=== PATIENT | female | born 1975 | race Caucasian/White ===

== ENCOUNTER 2022-08-15 19:21 | Emergency (ER) | payer SELFPAY ==
[2022-08-15 19:30] VITALS: BP 140/85; PULSE 98; RESP 20; TEMP 36.7; O2SAT 96; BMI 31.2
--- NOTE | 2022-08-15 20:04 | ED_ITS ---
HPI - Wound/Laceration General Chief Complaint: Laceration/Wound Stated Complaint: R thumb sliced open Time Seen by Provider: 08/15/22 19:34 History of Present Illness HPI narrative: This 47-year-old female comes in with a laceration to her right thumb. She was attempting to open a can and cut into the distal portion of her pad of her right thumb. There is a irregular laceration about 3 cm in length. She has applied a couple rubber bands around the proximal portion of her thumb for a partial tourniquet as the bleeding is continuing. She states that she is uncertain about her tetanus status. Related Data Home Medications Medication Instructions Recorded Confirmed No Known Home Medications 08/15/22 08/15/22 Allergies Allergy/AdvReac Type Severity Reaction Status Date / Time No Known Drug Allergies Allergy Verified 08/15/22 19:32 Review of Systems Status of ROS: Reports: 10 or more systems reviewed and unremarkable except as noted in History and below Narrative: Constitutional: No fevers, no weight gain or loss. Eyes: No discharge. No vision changes. HENT: No congestion, no sore throat, no ear pain. Cardiovascular: No chest pain, no palpitations. Respiratory: No shortness of breath, no wheezes, no cough. Gastrointestinal: No abdominal pain, no vomiting, no diarrhea. Genitourinary: No dysuria, no hematuria. Musculoskeletal: Normal range of motion. Skin: No rashes, no pruritis. Neurological: No dizziness, weakness, sensory change, speech change. Endo/Heme/Allergies: No bruising or bleeding. No polydipsia. Pysch: no suicidality, no anxiety, no insomnia. All other systems reviewed and are negative. Exam Narrative: Exam Narrative: Constitutional: Well-developed, well-nourished, no acute distress. HEENT: Normocephalic, atraumatic. Neck: Normal range of motion. Nontender. Supple. Heart: Intact distal pulses. Lungs: No chest discomfort. No wheezes, rhonchi, or rales. Abdomen: Nontender. Back: Normal range of motion. Extremities: Normal range of motion. Distal portion of the palmar aspect of the right thumb has a irregular laceration about 3 cm in length. Skin: Intact. No rash. Warm. No erythema or pallor. Neurologic: No altered sensation. No weakness. Alert and oriented. Psychiatric: No suicidality. No anxiety or depression. No insomnia. Nursing notes and vitals signs are reviewed. Const: Vital Signs, click to edit/add: Vital Signs - 24 hr 08/15/22 19:30 Temperature 98.1 F Pulse Rate [Pulse Oximeter] 98 Respiratory Rate 20 Blood Pressure [Le ft Upper Arm] 140/85 H Pulse Oximetry 96 Oxygen Delivery Me thod Room Air Course Vital Signs Vital signs: Initial Vital Signs Temperature 98.1 F 08/15/22 19:30 Temperature Source Temporal Artery Scan 08/15/22 19:30 Pulse Rate 98 08/15/22 19:30 Respiratory Rate 20 08/15/22 19:30 Blood Pressure 140/85 H 08/15/22 19:30 Blood Pressure Mean 103 08/15/22 19:30 Blood Pressure Position Sitting 08/15/22 19:30 Pulse Oximetry 96 08/15/22 19:30 Oxygen Delivery Method Room Air 08/15/22 19:30 Vital Signs Temperature 98.1 F 08/15/22 19:30 Pulse Rate 98 08/15/22 19:30 Respiratory Rate 20 08/15/22 19:30 Blood Pressure 140/85 H 08/15/22 19:30 Pulse Oximetry 96 08/15/22 19:30 Oxygen Delivery Method Room Air 08/15/22 19:30 Temperature 98.1 F 08/15/22 19:30 Pulse Rate 98 08/15/22 19:30 Respiratory Rate 20 08/15/22 19:30 Blood Pressure 140/85 H 08/15/22 19:30 Pulse Oximetry 96 08/15/22 19:30 Oxygen Delivery Method Room Air 08/15/22 19:30 MDM - Wound/Laceration MDM Narrative Medical decision making narrative: This patient has a laceration to her right thumb that would benefit from suture repair. After injecting the wound with lidocaine the wound was cleansed. Five sutures were placed in interrupted fashion using 4.0 Prolene suture. Instructions were given regarding wound care and the need to return to clinic or urgent care in 7-10 days for suture removal. The patient's tetanus status is significantly out of date. Last tetanus status is recorded in 1982, 40 years ago. She did receive a tetanus vaccination here. Discharge Plan Discharge Clinical Impression: Laceration Patient Disposition: Home, Self-Care Condition: Improved Additional Instructions: Keep wound clean and dry. Follow up with clinic or urgent care in 7-10 days for suture removal. Use [id number] medicines as needed and directed. Prescriptions: No Action No Known Home Medications Stand Alone Forms: [employer] Info Instructions
[2022-08-15] MEDS: TETANUS/DIPHTH/PERTUSSIS 0.5 ML SYRINGE IM (20:10)
== END 2022-08-15 20:23 | disposition home or self-care (01) ==
PROVIDERS: Emergency Provider Emergency Medicine Emergency Medical Services
DX: S61.011A Laceration without foreign body of right thumb without damage to nail, initial encounter (principal); W26.8XXA Contact with other sharp object(s), not elsewhere classified, initial encounter
CPT/HCPCS: 12002; 90471; 90715; 99284